=== PATIENT | female | born 1960 | race Caucasian/White ===

== ENCOUNTER → 2017-01-05 | Outpatient (CLI) | payer OTHER | LOC: FIMAGING 17:04 | PROVIDERS: ATTEND Family Medicine | DX: Z01.811 Encounter for preprocedural respiratory examination (principal); R94.31 Abnormal electrocardiogram [ECG] [EKG] ==

== ENCOUNTER 2017-02-05 12:49 | Inpatient (IN) | payer OTHER ==
--- NOTE | 2017-02-04 18:26 | GHP ---
[f rep st] PREOP HISTORY AND PHYSICAL DATE OF ADMISSION: 02/05/2017 DATE OF SURGERY: 02/05/2017. HISTORY: The patient is a 57-year-old female, who presents with severe left knee osteoarthritis and significant valgus malalignment. She has pain, swelling, limitation of motion, alteration of her gai t. She has a valgus thrust and this causes her to her limp. She has tried exercises and injections. This left knee has had previous ACL and an ACL revision. IMAGING: X-rays show tricompartment osteoarthritis of the left knee, severe narrowing, especially la terally, with degenerative lipping, joint-space narrowing, and subchondral sclerosis. A left total k nee arthroplasty is planned. ALLERGIES: No known drug allergies. PAST MEDICAL HISTORY: Anxiety, asthma. She has a history of skin cancer. PAST SURGICAL HISTORY: Skin cancer removal, placement of a left distal radial plate, subsequent onur sisi. She has had a left total shoulder arthroplasty. She has had a left ACL and revision. A right ankle procedure, bilateral hip replacements and she has had a successful right total knee arthroplast y. MEDICATIONS: Complex, pain service provides pain medications for chronic issues with pain largely mu sculoskeletal issues. She has had multiple severely arthritic joints. Her medications include diclo fenac topical gel, gabapentin 300 mg tablets, fentanyl 50 mcg/hour transdermal patch, carisoprodol 35 0 mg tablets, 1 tablet t.i.d. Trazodone 100 mg tablets, oxycodone 30 mg tablets, acyclovir 400 mg ta blets. Her pain service will manage her pain postoperatively. SOCIAL HISTORY: She is a nonsmoker. REVIEW OF SYSTEMS: Negative for cardiopulmonary disease. PHYSICAL EXAM: GENERAL: She is a well developed, well-nourished female in no apparent distress. HE AD AND NECK: Normocephalic, atraumatic. CHEST: Clear. CARDIOVASCULAR: Regular rate and rhythm. ABDOMEN: Soft. NEUROLOGIC: She is alert and oriented x3. EXTREMITIES: The left knee has signific ant valgus malalignment. She has a valgus thrust when she weight bears. She has a slight flexion co ntracture. She bends to about 120 degrees. SKIN: Intact. NEUROVASCULAR: Exam is intact. IMPRESSION: Left knee osteoarthritis. PLAN: Left total knee arthroplasty. Benefits and risks of surgery have been reviewed with the patie nt. She understands that the risks include infection, damage to blood vessels, nerves, failure or lo osening of components, and need for revision. There is the possibility of bleeding and need for rudolph sfusion, blood clot in the leg or lungs. She understands that, at her relatively young age, that she may need revision of her total knee. Her pain service will consult for managing her pain medication , she already has a prescription from them for postop pain management. This is oral medication. She has signed a consent form, wishes to proceed. /[id number]/MODL
[2017-02-05] MEDS ORDERED: TRANEXAMIC ACID IV ONE ×3 (13:32→14:00)
[2017-02-05] MEDS ORDERED: ACETAMINOPHEN 325 MG TAB PO ONE (13:32)
[2017-02-05] MEDS ORDERED: POVIDONE-IODINE 20 ML in SODIUM CL IRRIG SOLUTION 500 ML IRR ONE (13:32)
[2017-02-05] MEDS ORDERED: NS IV ONE ×3 (13:32→14:00)
[2017-02-05] MEDS ORDERED: DEXAMETHASONE 4 MG/ML VIAL IVP ONE (13:32)
[2017-02-05] MEDS ORDERED: ROPIVACAINE 0.2% 80 MG, EPINEPHrine 0.2 MG, KETOROLAC TROMETHAMINE 30 MG in BAG 0 ML IU ONE (13:32)
[2017-02-05] MEDS ORDERED: ceFAZolin 2 GM/DEXTROSE 100 ML IV ONE (13:32)
[2017-02-05] MEDS ORDERED: FAMOTIDINE 20 MG TAB PO ONE (13:32)
[2017-02-05] MEDS ORDERED: ceFAZolin 1 GM/5 ML SYR ONE ×2 (13:48→15:54)
[2017-02-05] MEDS ORDERED: LIDOCAINE 1% 2 ML INJ ID PRN (13:54)
[2017-02-05] MEDS ORDERED: LR 1,000 ML IV ONE (13:54)
[2017-02-05] MEDS ORDERED: PROPOFOL/EMULSION 500 MG/50 ML BOTTLE IV ONE (14:05)
[2017-02-05] MEDS ORDERED: MIDAZOLAM 2 MG/2 ML VIAL ONE ×2 (14:05→14:23)
--- NOTE | 2017-02-05 14:18 | PDANEPAE ---
ANE Past Medical History - Cardiovascular History Hx Hypertension: No Hx Arrhythmias: No Hx Chest Pain: No Hx Coronary Artery / Peripheral Vascular Disease: No Hx CHF / Valvular Disease: No Hx Palpitations: No - Pulmonary History Hx COPD: No Hx Asthma/Reactive Airway Disease: No Hx Recent Upper Respiratory Infection: No Hx Oxygen in Use at Home: No Hx Sleep Apnea: No Sleep Apnea Screening Result - Last Documented: Negative Pulmonary History Comment: HX ASTHMA - Neurologic History Hx Cerebrovascular Accident: No Hx Seizures: No Hx Dementia: No - Endocrine History Hx Diabetes: No - Renal History Hx Renal Disorders: No - Liver History Hx Hepatic Disorders: No - Neurological & Psychiatric Hx Hx Neurological and Psychiatric Disorders: Yes Neurological / Psychiatric History Comment: anxiety- on buproprion - Cancer History Hx Cancer: Yes Cancer History Comment: [id number] SKIN CA REMOVED - Congenital Disorder History Hx Congenital Disorders: No - GI History Hx Gastrointestinal Disorders: No - Other Health History Other Health History: BRUISES EASILY - Chronic Pain History Chronic Pain: Yes (bilateral shoulders, neck, lower back and bilateral knees) - Surgical History Prior Surgeries: 02/19/12 left shoulder arthroplasty with Balbir. 02/24/09 right BHR with Earl. 2006 frederic left filemon. 2007 earl left filemon. left acl surgery. left wrist surgery ANE Review of Systems Review of Systems: - Exercise capacity METS (RN): 4 METS ANE Patient History - Allergies Allergies/Adverse Reactions: DAIRY Allergy (Intermediate, Uncoded 07/23/13 15:15) CONGESTION/ MOTA OVER RIGHT EYE - Home Medications Home Medications: Gabapentin [Neurontin 300 MG (*)] 600 mg PO HS 04/25/16 [Last Taken 02/04/17] buPROPion [Wellbutrin 75mg (*)] 75 mg PO BID 04/25/16 [Last Taken 02/02/17] celeCOXIB [Celecoxib] 100 mg PO BID 04/25/16 [Last Taken 01/08/17] fentaNYL [Duragesic 75 MCG Patch (*)] 75 mcg TD Q48H 04/25/16 [Last Taken ] oxyCODONE IR [Oxycodone Ir (*)] 30 mg PO Q4 PRN 04/25/16 [Last Taken 02/05/17 11 :00] traZODone [traZODONE 100MG (*)] 100 mg PO HS PRN 04/25/16 [Last Taken 02/04/17 22:00] Baclofen [Baclofen 10 mg (*)] 5 - 10 mg PO HS 01/19/17 [Last Taken 02/05/17 09: 00] Bi-Est 2.5/P4 50mg 1 - 2 ml TP .1-2 TIMES/WEEK 01/19/17 [Last Taken 02/04/17] Calcium Carbonate [Oyster Shell Calcium 500 mg (*)] 500 mg PO DAILY 01/19/17 [ Last Taken 01/29/17] DULoxetine [Cymbalta 60 MG (*)] 60 mg PO DAILY 01/19/17 [Last Taken 01/29/17] E2 2mg/Gram 1 royal VG AD 01/19/17 [Last Taken 02/04/17] Herbals/Supplements -Info Only 1 ea PO DAILY 01/19/17 [Last Taken 01/22/17] Ibuprofen [Motrin (*)] 200 mg PO DAILY PRN 01/19/17 [Last Taken 01/29/17] Melatonin [Melatonin 3 MG (*)] 3 mg PO HS 01/19/17 [Last Taken 02/04/17] Methocarbamol [Robaxin 500 mg (*)] 500 mg PO TID 01/19/17 [Last Taken 02/05/17 09:00] Multivitamins [Multivitamin (*)] 1 each PO DAILY 01/19/17 [Last Taken 01/27/17] [place]-3 Fatty Acids [Fish Oil 1000 mg (*)] 2,000 mg PO DAILY 01/19/17 [Last Taken 01/22/17] Polyethylene Glycol 3350 [Miralax 17 gm (*)] 17 gm PO DAILY PRN 01/19/17 [Last Taken 02/04/17] hydrOXYzine HCL [hydrOXYzine HCL (RX)] 50 mg PO TID PRN 01/19/17 [Last Taken ] - NPO status NPO Since - Liquids (Date): 02/05/17 NPO Since - Liquids (Time): 11:00 NPO Since - Solids (Date): 02/04/17 NPO Since - Solids (Time): 22:00 - Smoking Hx Smoking Status: Never smoked - Family Anes Hx Family Hx Anesthesia Complications: None ANE Labs/Vital Signs - Vital Signs Blood Pressure: 137/93 Heart Rate: 76 Respiratory Rate: 16 O2 Sat (%): 96 Height: 170.18 cm Weight: 52.163 kg ANE Physical Exam - Airway Mallampati Score: Class 1 Mouth exam: normal dental/mouth exam - Pulmonary Pulmonary: no respiratory distress, no rales or rhonchi, clear to auscultation - Cardiovascular Cardiovascular: regular rate and rhythym, no murmur, rub, or gallop - ASA Status ASA Status: III ANE Anesthesia Plan Anesthesia Plan: spinal Regional Anesthesia: continuous NB, adductor canal FNB, POPC/PSR
[2017-02-05] MEDS ORDERED: ROPIVACAINE HCL 150 MG/30 ML INJ ONE (14:36)
[2017-02-05] MEDS ORDERED: LIDOCAINE 2% 5 ML SDV ONE (14:36)
[2017-02-05] MEDS ORDERED: PROMETHAZINE HCL 25 MG/ML INJ IVP PRN ×2 (15:03→16:25)
[2017-02-05] MEDS ORDERED: ALBUTEROL 3 ML DEYVIAL IH PRN (15:03)
[2017-02-05] MEDS ORDERED: fentaNYL 100 MCG/2 ML INJ IVP PRN (15:03)
[2017-02-05] MEDS ORDERED: DEXAMETHASONE 4 MG/ML VIAL IVP PRN (15:03)
[2017-02-05] MEDS ORDERED: LR 500 ML IV PRN (15:03)
[2017-02-05] MEDS ORDERED: NALOXONE HCL 0.4 MG/ML INJ IVP PRN ×2 (15:03→22:00)
[2017-02-05] MEDS ORDERED: ONDANSETRON 4 MG/2 ML VIAL IVP PRN ×2 (15:03→16:25)
[2017-02-05] MEDS ORDERED: BACITRACIN 50,000 UNITS/10 ML SYR IRR ONE (15:45)
[2017-02-05] MEDS ORDERED: DEXAMETHASONE 10 MG/ML VIAL ONE (15:59)
[2017-02-05] MEDS ORDERED: BUPIVACAINE 0.5% 30 ML SDV ONE (16:13)
[2017-02-05] MEDS ORDERED: DIPHENOXYLATE/ATROPINE LOMOTIL 1 TAB PO PRN (16:25)
[2017-02-05] MEDS ORDERED: LACTULOSE 20 GM/30 ML UDCUP PO PRN (16:25)
[2017-02-05] MEDS ORDERED: TEMAZEPAM 15 MG CAP PO PRN (16:25)
[2017-02-05] MEDS ORDERED: PHARMACY PAIN CONSULT 1 EA MISC PRN (16:25)
[2017-02-05] MEDS ORDERED: METOCLOPRAMIDE 10 MG/2 ML VIAL IVP PRN (16:25)
[2017-02-05] MEDS ORDERED: oxyCODONE IR 5 MG TAB PO PRN (16:25)
[2017-02-05] MEDS ORDERED: KETOROLAC 30 MG/1 ML SDV IVP PRN (16:25)
[2017-02-05] MEDS ORDERED: PROMETHAZINE HCL 25 MG SUPPR PR PRN (16:25)
[2017-02-05] MEDS ORDERED: POLYETHYLENE GLYCOL 3350 17 GM PKT PO PRN ×2 (16:25→16:29)
[2017-02-05] MEDS ORDERED: ONDANSETRON DISINTEGRATING 4 MG TAB PO PRN (16:25)
[2017-02-05] MEDS ORDERED: MAGNESIUM HYDROXIDE 30 ML UDCUP PO PRN (16:25)
[2017-02-05] MEDS ORDERED: diphenhydrAMINE 25 MG CAP PO PRN (16:25)
[2017-02-05] MEDS ORDERED: HYDROmorphONE/DILAUDID 1 MG/ML INJ ONE ×2 (16:25→17:24)
[2017-02-05] MEDS ORDERED: BISACODYL 10 MG SUPP PR PRN (16:25)
[2017-02-05] MEDS: HYDROmorphONE/DILAUDID 1 MG/ML INJ IVP PRN ×2 (16:28→17:26)
[2017-02-05] MEDS ORDERED: hydrOXYzine HCL 25 MG TAB PO PRN (16:29)
[2017-02-05] MEDS ORDERED: fentaNYL 75 MCG PATCH TD SCH (16:30)
[2017-02-05] MEDS ORDERED: LR 1,000 ML IV SCH (16:30)
[2017-02-05] MEDS ORDERED: [UNRECOGNIZED DRUG - OTHER] VG SCH (16:30)
[2017-02-05] MEDS ORDERED: DIAZEPAM 10 MG/2 ML SYR ONE (16:40)
[2017-02-05] MEDS ORDERED: ROPIVACAINE 0.2% 1,100 MG in PUMP SET 1 EA NB SCH (17:00)
[2017-02-05] MEDS ORDERED: fentaNYL 100 MCG/2 ML INJ ONE (17:24)
[2017-02-05] MEDS ORDERED: HYDROmorphONE/DILAUDID 1 MG/ML INJ IVP ONE (18:00)
[2017-02-05] MEDS: ACETAMINOPHEN 325 MG TAB PO SCH ×2 (18:20→22:56)
--- NOTE | 2017-02-05 19:29 | GOP ---
[f rep st] OPERATIVE REPORT DATE OF OPERATION: 02/05/2017 SURGEON: Gus Tavarez MD MEDICAL SALES SPECIALIST: Paolo Singh, [facility], A ANESTHESIOLOGIST: Leah Durant MD PREOPERATIVE DIAGNOSIS: 1. Left knee osteoarthritis. 2. Retained hardware. POSTOPERATIVE DIAGNOSIS: 1. Left knee osteoarthritis. 2. Retained hardware. PROCEDURE PERFORMED: 1. Left total knee arthroplasty. 2. Hardware removal, distal femur, proximal tibia. FINDINGS: INDICATIONS: The patient is a 57-year-old female, who presents with severe tricompartmental osteoart hritis, in valgus malalignment, that has been chronic and no longer responsive to more conservative m easures. She has severe osteoarthritis and degenerative lipping, subchondral sclerosis, decreased everette int space, and valgus malalignment, especially degenerative on the lateral side. A left total knee a rthroplasty is planned. DESCRIPTION OF PROCEDURE: The patient was taken to the operating room, and while seated on the opera ting table, a spinal block was provided by Dr. Durant. She received IV sedation, 2 g of IV Ancef, and tranexamic acid. A tourniquet was fit high on the left thigh and the left leg was prepped and drape d in the usual fashion with chlorhexidine. The limb was elevated, exsanguinated, the tourniquet infl ated to 250 mmHg. I made a longitudinal incision in the anterior midline, used a medial parapatellar arthrotomy. I inverted the patella, measured its thickness, removed 9 mm of cartilage and bone, inc ised the patellar component was 32. I drilled peg holes and I found that the combination of the brodie ve patella and the trial reconstituted the thickness of the patella very nicely. I removed rimming o steophytes. The knee was then flexed and I used an intramedullary kelsea in the femur. This required m e to remove a screw and washer that were previously placed for revision ACL reconstruction in the sup racondylar area. I then placed the femoral kelsea for a 5 degree valgus cut +2 extra bone for her sligh t flexion contracture, and I made a distal cut. I sized this to a size 4. Anterior, posterior, marvin pavel cuts were used, as well as the box cut for the notch for this bi-cruciate stabilized knee, and th e femoral component was a good fit. I used a posterior and lateral retractor. I used an extramedull buster device on the tibia. I adjusted for slope, rotation, and appropriate depth cut, and made a cut o f the proximal tibia perpendicular to the shaft of the tibia. I sized this to a 3. I dialed in its rotation, pinned it, and completed the tibial prep. All the bone surfaces were irrigated with antibi otic solution. All were coated with cement and the components were applied. After the cement had humprhey rdened, I did trial reductions, and found that the 10 mm insert allowed full extension, excellent rol lback in flexion, and appropriate ligamentous stability. Rotation was fine. Patellar tracking looke d good. I did also remove the tibial screw which was size 4.5 cortical Synthes screw in the tibia, a nd a washer, again from the previous ACL reconstruction. It was prominent on her ugalde. Copious anti biotic irrigation was used. I used an iodine wash as well. The tourniquet was let down after about 70 minutes. I did trial reductions, as noted, and the 10 mm tray was the best. I closed the arthrot masha using interrupted [id number] sutures of 0 M[place]il[place], subcutaneous tissue was closed with 2-0 Monocryl, and the skin was closed with eric. The wounds were all dressed with Betadine-soaked Ad aptic, 4 x 4, sterile Webril, and a long-leg DORITA stocking. There were no complications. Estimated b lood loss was minimal. There were no drains. Specimens included excised bone. All counts were geovany ect. The patient was taken in stable condition to recovery. My surgical endoscopist was a [facility] to accomplish this total knee. SUMMARY OF COMPONENTS: A [employer] knee, bi-cruciate stabilized, Oxinium femur, all c omponents cemented. The femur is size 4, tibia size 3, the articular tray 10 mm, and the patella is 32 mm. /[id number]/MODL
--- NOTE | 2017-02-05 19:53 | POSTANESTH ---
Post Anesthetic Evaluation Cardiovascular Status: Normal, Stable Respiratory Status: Normal, Stable Level of Consciousness/Mental Status: Can Participate in Eval Pain Control: Adequate, Prn Tx Ordered Nausea/Vomiting Control: Adequate, Prn Tx Ordered Complications Possibly Related to Anesthesia: None Noted Notes: Continous Adductor canal nerve block performed in Pacu
[2017-02-05] MEDS: SENNOSIDES/DOCUSATE SODIUM TAB PO SCH (19:57)
[2017-02-05] MEDS: GABAPENTIN 300 MG CAP PO SCH (19:57)
[2017-02-05] MEDS: buPROPion 75 MG TAB PO SCH (19:58)
[2017-02-05] MEDS: MELATONIN 3 MG TAB PO SCH (19:58)
[2017-02-05] MEDS: FAMOTIDINE 20 MG TAB PO SCH (19:58)
[2017-02-05] MEDS: ASPIRIN 325 MG TAB PO SCH (20:10)
[2017-02-05] MEDS: METHOCARBAMOL 500 MG TAB PO SCH (20:11)
[2017-02-05] MEDS: ceFAZolin 2 GM/DEXTROSE 100 ML IV SCH (20:15)
[2017-02-05] MEDS: HYDROmorphONE/DILAUDID 6 MG/30 ML PCA IV PRN (23:00)
[2017-02-06 05:21] LABS: HEMATOCRIT 30.7 % (38.0-47.0); HEMOGLOBIN 10.4 g/dL (12.6-16.3)
[2017-02-06] MEDS: HYDROmorphONE/DILAUDID 6 MG/30 ML PCA IV PRN ×2 (05:56→15:41)
[2017-02-06] MEDS: ACETAMINOPHEN 325 MG TAB PO SCH ×4 (05:59→23:46)
[2017-02-06] MEDS: ceFAZolin 2 GM/DEXTROSE 100 ML IV SCH (06:00)
--- NOTE | 2017-02-06 08:21 | SOAPPROG ---
SOAP Progress Note Assessment/Plan: Assessment: 02/06/17 POD#1 L TKA, pain controll a challenge, Hct 30, xray fine Plan: 02/06/17 08:19 PT/OT, manage pain meds and pump Objective: Vital Signs Temp Pulse Resp BP Pulse Ox 36.8 C 83 16 97/51 L 94 02/06/17 07:50 02/06/17 07:50 02/06/17 07:50 02/06/17 07:50 02/06/17 07:50 Laboratory Results 02/06/17 04:56 02/05/17 02/06/17 02/07/17 05:59 05:59 05:59 Intake Total 1000 Output Total 930 Balance 70 ICD10 Worksheet Patient Problems: Problems Problem Status Onset Osteoarthritis of multiple joints Active Methicillin resistant Staphylococcus aureus infection Acute ~01/05/17
[2017-02-06] MEDS: ASPIRIN 325 MG TAB PO SCH (09:42)
[2017-02-06] MEDS: buPROPion 75 MG TAB PO SCH ×2 (09:43→21:51)
[2017-02-06] MEDS: DULoxetine 60 MG CAP PO SCH (09:43)
[2017-02-06] MEDS: METHOCARBAMOL 500 MG TAB PO SCH ×3 (09:43→21:50)
[2017-02-06] MEDS: FAMOTIDINE 20 MG TAB PO SCH ×2 (09:43→21:51)
[2017-02-06] MEDS: SENNOSIDES/DOCUSATE SODIUM TAB PO SCH ×2 (09:43→21:50)
[2017-02-06] MEDS: CALCIUM CARBONATE 500 MG TAB PO SCH (09:43)
[2017-02-06] MEDS: CYCLOBENZAPRINE 10 MG TAB PO PRN (12:31)
--- NOTE | 2017-02-06 15:06 | ASMTCMCOM ---
CM Note CM Note Notes: Pt agreeable to [facility] per PT rec. Pt has [employer] ins; referral sent to [facility] who will confirm they can take ins. CM to follow. Date Signed: 02/06/2017 03:06 PM Electronically Signed By:DINAH Stevens
--- NOTE | 2017-02-06 16:23 | ASMTCMCOM ---
CM Note CM Note Notes: [facility] cannot accept due to staffing, referral sent to [facility]. Date Signed: 02/06/2017 04:23 PM Electronically Signed By:DINAH Stevens
[2017-02-06] MEDS: GABAPENTIN 300 MG CAP PO SCH (21:50)
[2017-02-06] MEDS: MELATONIN 3 MG TAB PO SCH (21:51)
[2017-02-07 02:12] VITALS: RESP 16
[2017-02-07 06:07] LABS: HEMATOCRIT 26.4 % (38.0-47.0); HEMOGLOBIN 8.7 g/dL (12.6-16.3)
[2017-02-07] MEDS: ACETAMINOPHEN 325 MG TAB PO SCH ×2 (06:14→10:49)
[2017-02-07] MEDS: CYCLOBENZAPRINE 10 MG TAB PO PRN (06:20)
[2017-02-07] MEDS: METHOCARBAMOL 500 MG TAB PO SCH (09:14)
[2017-02-07] MEDS: CALCIUM CARBONATE 500 MG TAB PO SCH (09:14)
[2017-02-07] MEDS: ASPIRIN 325 MG TAB PO SCH (09:14)
[2017-02-07] MEDS: SENNOSIDES/DOCUSATE SODIUM TAB PO SCH (09:14)
[2017-02-07] MEDS: FAMOTIDINE 20 MG TAB PO SCH (09:15)
[2017-02-07] MEDS: DULoxetine 60 MG CAP PO SCH (09:15)
[2017-02-07] MEDS: buPROPion 75 MG TAB PO SCH (09:15)
--- NOTE | 2017-02-07 11:32 | SOAPPROG ---
SOAP Progress Note Assessment/Plan: Assessment: 02/06/17 POD#1 L TKA, pain controll a challenge, Hct 30, xray fine 02/07/17 POD#2, off iv pain pump, changed dressing Plan: 02/06/17 08:19 PT/OT, manage pain meds and pump 02/07/17 11:30 ok for d/c home, has meds, asa 325 Objective: Vital Signs Temp Pulse Resp BP Pulse Ox 36.8 C 83 16 106/64 90 L 02/07/17 10:00 02/07/17 10:00 02/07/17 10:00 02/07/17 10:00 02/07/17 10:00 Laboratory Results 02/07/17 04:55 02/06/17 02/07/17 02/08/17 05:59 05:59 05:59 Intake Total 1000 400 Output Total 930 350 Balance 70 50 ICD10 Worksheet Patient Problems: Problems Problem Status Onset Osteoarthritis of multiple joints Active Methicillin resistant Staphylococcus aureus infection Acute ~01/05/17
--- NOTE | 2017-02-07 11:38 | PDIAF ---
- Diagnosis Code Status: Full Code - Medication Management Discharge Medications: Medications to Continue on Transfer Gabapentin [Neurontin 300 MG (*)] 600 mg PO HS 04/25/16 [Last Taken 02/04/17] buPROPion [Wellbutrin 75mg (*)] 75 mg PO BID 04/25/16 [Last Taken 02/02/17] celeCOXIB [Celecoxib] 100 mg PO BID 04/25/16 [Last Taken 01/08/17] oxyCODONE IR [Oxycodone Ir (*)] 30 mg PO Q4 PRN 04/25/16 [Last Taken 02/05/17 11 :00] traZODone [traZODONE 100MG (*)] 100 mg PO HS PRN 04/25/16 [Last Taken 02/04/17 22:00] Baclofen [Baclofen 10 mg (*)] 5 - 10 mg PO HS 01/19/17 [Last Taken 02/05/17 09: 00] Bi-Est 2.5/P4 50mg 1 - 2 ml TP .1-2 TIMES/WEEK 01/19/17 [Last Taken 02/04/17] Calcium Carbonate [Oyster Shell Calcium 500 mg (*)] 500 mg PO DAILY 01/19/17 [ Last Taken 01/29/17] DULoxetine [Cymbalta 60 MG (*)] 60 mg PO DAILY 01/19/17 [Last Taken 01/29/17] E2 2mg/Gram 1 royal VG AD 01/19/17 [Last Taken 02/04/17] Herbals/Supplements -Info Only 1 ea PO DAILY 01/19/17 [Last Taken 01/22/17] Ibuprofen [Motrin (*)] 200 mg PO DAILY PRN 01/19/17 [Last Taken 01/29/17] Melatonin [Melatonin 3 MG (*)] 3 mg PO HS 01/19/17 [Last Taken 02/04/17] Methocarbamol [Robaxin 500 mg (*)] 500 mg PO TID 01/19/17 [Last Taken 02/05/17 09:00] Multivitamins [Multivitamin (*)] 1 each PO DAILY 01/19/17 [Last Taken 01/27/17] [place]-3 Fatty Acids [Fish Oil 1000 mg (*)] 2,000 mg PO DAILY 01/19/17 [Last Taken 01/22/17] Polyethylene Glycol 3350 [Miralax 17 gm (*)] 17 gm PO DAILY PRN 01/19/17 [Last Taken 02/04/17] hydrOXYzine HCL [hydrOXYzine HCL (RX)] 50 mg PO TID PRN 01/19/17 [Last Taken ] Aspirin [Aspirin 325 mg (*)] 325 mg PO DAILY tab 02/07/17 [Last Taken Unknown] Discharge Medications: Refer to the Discharge Home Medication list for PRN reason. - Orders Services needed: Physical Therapy Diet Recommendation: no restrictions on diet Diet Texture: Regular Texture Diet Ruperto Stockings Discontinue Date: 2 wls post op Wound Care Instructions: dressing change daily Sutures/Maribell Site: maribell: knee, I will remove at 2 weeks Activity/Weight Bearing Restrictions: WBAT, FROM - Follow Up Care Current Providers and Referrals: Ana Sun MD [Primary Care Provider] -
[2017-02-07 11:57] VITALS: BP 108/71; PULSE 81; TEMP 98.4; O2SAT 91
--- NOTE | 2017-02-07 14:15 | ASMTCMCOM ---
CM Note CM Note Notes: Pt medically stable for d/c w [facility]. Date Signed: 02/07/2017 02:14 PM Electronically Signed By:DINAH Stevens
--- NOTE | 2017-02-07 16:03 | ASDISCHSUM ---
Discharge Information Plan Status:Home with Home Health Medically Cleared to Leave: Discharge Date:02/07/2017 03:56 PM CM D/C Disposition:Home Health Service ADT D/C Disposition:Home Health Service Projected Discharge Date:02/07/2017 11:00 AM Transportation at D/C: Discharge Delay Reason: Follow-Up Date:02/07/2017 11:00 AM Discharge Slot: Final Diagnosis: Placement Information Referral Type:*Home Health Care Services Referral ID:[id number] Provider Name:[facility] [place] Address 1:[address] [place] [address] Phone Number: Address 2: Fax Number: City:[place] Selection Factors: State:[place] Patient Contact Information Contact Name:ALEJANDRA Relationship: Address:[address] [place] [address] City:[facility] Phone: State/Zip Code:[place] [address] Email: Financial Information Financial Class:HMO and PPO Plans Primary Plan Desc:[employer] PPO POS HMO Primary Plan Number:[id number] Secondary Plan Desc: Secondary Plan Number: Assessment Information [facility] CM Progress Note CM Note CM Note Notes: Pt agreeable to [facility] per PT rec. Pt has [employer] ins; referral sent to [facility] who will confirm they can take ins. CM to follow. Date Signed: 02/06/2017 03:06 PM Electronically Signed By:DINAH Stevens [facility] CM Progress Note CM Note CM Note Notes: [facility], referral sent to [facility]. Date Signed: 02/06/2017 04:23 PM Electronically Signed By:DINAH Stevens [facility] CM Progress Note CM Note CM Note Notes: Pt medically stable for d/c w [facility]. Date Signed: 02/07/2017 02:14 PM Electronically Signed By:DINAH Stevens Intervention Information
== END 2017-02-07 15:56 | disposition home health service (06) | DRG 470 ==
LOC: F3N 12:49
PROVIDERS: ADMIT Orthopaedic Surgery; ATTEND Orthopaedic Surgery
PROC: 0SRD0J9 Replacement of Left Knee Joint with Synthetic Substitute, Cemented, Open Approach (ICD-10-PCS; principal; 2017-02-05 14:15)
DX: M17.12 Unilateral primary osteoarthritis, left knee (principal); J45.909 Unspecified asthma, uncomplicated; Z96.612 Presence of left artificial shoulder joint; Z96.643 Presence of artificial hip joint, bilateral; Z96.651 Presence of right artificial knee joint; Z85.820 Personal history of malignant melanoma of skin
CPT/HCPCS: 97116-GP; 97161-GP; 97165-GO; 97530-GP; 97535-GO; C1713; J0171; J0690; J1100; J1170; J1885; J2250; J2704; J2795; J3010

== ENCOUNTER 2017-07-26 08:31 | Emergency (ER) | payer OTHER ==
[2017-07-26 08:44] VITALS: BP 130/90; PULSE 91; RESP 16; TEMP 99.7; O2SAT 92
[2017-07-26] MEDS ORDERED: ACETAMINOPHEN 500 MG TAB PO ONE (09:07)
--- NOTE | 2017-07-26 09:11 | EDPHY ---
H & P Time Seen by Provider: 07/26/17 08:36 HPI/ROS: CHIEF COMPLAINT: Fever, body aches HISTORY OF PRESENT ILLNESS: Patient states last night she started feeling ill, more tired than normal, went to bed early. At 6 o'clock this morning she woke up with fever"burning up"measured at 104 degrees. She took 400 mg of Advil with some relief. She is complaining of overall body aches but more so in her low back where she has chronic pain. Also generally weak and states that her head feels like it is"on fire". She did have 1 episode of vomiting and some nausea around 615 this morning but after that was able to keep fluids down. She denies dysuria, diarrhea. No cough. She denies sore throat or earache. She has a little bit of rhinorrhea that is chronic in nature. No other recent illnesses. Did get a flu shot. Called her primary care physician and was recommended to go into the emergency department. Contents of 10 point review of systems otherwise negative except for what is mentioned in HPI. General Appearance: Alert, no distress. Eyes: Pupils equal and round no pallor or injection. ENT, Mouth: Mucous membranes moist. Normal posterior oropharynx. Respiratory: There are no retractions, lungs are clear to auscultation. Cardiovascular: Regular rate and rhythm. Gastrointestinal: Abdomen is soft and nontender, no masses, bowel sounds normal. Neurological: Cranial nerves intact, alert, movement extremities x4 is normal. Normal tone. Skin: Warm and dry, no rashes. Musculoskeletal: Neck is supple nontender. Extremities are symmetrical, full range of motion, no edema. Psychiatric: Patient is oriented X 3, there is no agitation. Medical/surgical history: Chronic pain. ACL surgery, hip replacement, shoulder replacement. Psoriasis. Social history: Nonsmoker, lives with . Smoking Status: Never smoked Constitutional: Initial Vital Signs Temperature (C) 37.6 C 07/26/17 08:39 Heart Rate 91 07/26/17 08:39 Respiratory Rate 16 07/26/17 08:39 Blood Pressure 130/90 H 07/26/17 08:39 O2 Sat (%) 92 07/26/17 08:39 O2 Delivery Mode Room Air Allergies/Adverse Reactions: No Known Allergies Allergy (Verified 07/26/17 08:38) Home Medications: Medication Instructions Recorded Gabapentin [Neurontin 300 MG (*)] 600 mg PO HS 04/25/16 buPROPion [Wellbutrin 75mg (*)] 75 mg PO BID 04/25/16 celeCOXIB [Celecoxib] 100 mg PO BID 04/25/16 oxyCODONE IR [Oxycodone Ir (*)] 30 mg PO Q4 PRN 04/25/16 traZODone [traZODONE 100MG (*)] 100 mg PO HS PRN 04/25/16 Baclofen [Baclofen 10 mg (*)] 5 - 10 mg PO HS 01/19/17 Bi-Est 2.5/P4 50mg 1 - 2 ml TP .1-2 TIMES/WEEK 01/19/17 Calcium Carbonate [Oyster Shell 500 mg PO DAILY 01/19/17 Calcium 500 mg (*)] DULoxetine [Cymbalta 60 MG (*)] 60 mg PO DAILY 01/19/17 E2 2mg/Gram 1 royal VG AD 01/19/17 Herbals/Supplements -Info Only 1 ea PO DAILY 01/19/17 Ibuprofen [Motrin (*)] 200 mg PO DAILY PRN 01/19/17 Melatonin [Melatonin 3 MG (*)] 3 mg PO HS 01/19/17 Methocarbamol [Robaxin 500 mg (*)] 500 mg PO TID 01/19/17 Multivitamins [Multivitamin (*)] 1 each PO DAILY 01/19/17 [place]-3 Fatty Acids [Fish Oil 1000 2,000 mg PO DAILY 01/19/17 mg (*)] Polyethylene Glycol 3350 [Miralax 17 gm PO DAILY PRN 01/19/17 17 gm (*)] hydrOXYzine HCL [hydrOXYzine HCL 50 mg PO TID PRN 01/19/17 (RX)] Aspirin [Aspirin 325 mg (*)] 325 mg PO DAILY tab 02/07/17 Oseltamivir Phosphate [Tamiflu 75 75 mg PO BID #10 cap 07/26/17 mg (*)] Medical Decision Making Differential Diagnosis: Differential diagnosis includes but is not limited to influenza, urinary tract infection, pneumonia, other bacterial infection. After evaluation patient well appearing with signs and symptoms of influenza. Deferred influenza testing and offered prescription for Tamiflu. No signs of strep pharyngitis, pneumonia, dysuria, sepsis. Discussed home care, follow-up and reviewed return precautions in detail. Stable for discharge. - Data Points Medications Given: Discontinued Medications Acetaminophen (Tylenol) 1,000 mg PO EDNOW ONE Stop: 07/26/17 09:08 Last Admin: 07/26/17 09:13 Dose: 1,000 mg Departure - Departure Disposition: Home, Routine, Self-Care Clinical Impression: Viral syndrome Condition: Good Instructions: Influenza (ED) Additional Instructions: Use ibuprofen alternating with Tylenol for fever control and to help with body aches. Stay well hydrated. Rest. Expect to be ill for a week or so. Return to the emergency department if you have trouble breathing, chest pain, are dehydrated or for other concerning symptoms. Otherwise follow up with the primary care physician. Referrals: Ana Sun MD [Primary Care Provider] - As per Instructions Prescriptions: Oseltamivir Phosphate [Tamiflu 75 mg (*)] 75 mg PO BID #10 cap
== END 2017-07-26 09:25 | disposition home or self-care (01) ==
LOC: CED 08:31
DX: B34.9 Viral infection, unspecified (principal); Z79.82 Long term (current) use of aspirin

== ENCOUNTER → 2017-08-24 | Outpatient (CLI) | payer OTHER, MEDICAID | LOC: FIMAGING 08:33 | PROVIDERS: ATTEND Orthopaedic Surgery | DX: M75.32 Calcific tendinitis of left shoulder (principal) ==

== ENCOUNTER → 2017-09-03 | Outpatient (CLI) | payer OTHER | LOC: FIMAGING 14:47 | PROVIDERS: ATTEND Family Medicine | DX: Z12.31 Encounter for screening mammogram for malignant neoplasm of breast (principal) ==

== ENCOUNTER 2017-10-03 08:16 | Day surgery (SDC) | payer MEDICAID ==
[2017-10-03] MEDS ORDERED: LR 1,000 ML IV ONE (08:30)
[2017-10-03] MEDS ORDERED: LIDOCAINE 1% 2 ML INJ ID PRN (08:52)
[2017-10-03] MEDS ORDERED: LIDOCAINE 1% 2 ML INJ ONE (08:53)
--- NOTE | 2017-10-03 09:32 | PDANEPAE ---
ANE History of Present Illness here for colonoscopy ANE Past Medical History - Cardiovascular History Hx Hypertension: No Hx Arrhythmias: No Hx Chest Pain: No Hx Coronary Artery / Peripheral Vascular Disease: No Hx CHF / Valvular Disease: No Hx Palpitations: No - Pulmonary History Hx COPD: No Hx Asthma/Reactive Airway Disease: No Hx Recent Upper Respiratory Infection: No Hx Oxygen in Use at Home: No Hx Sleep Apnea: No Sleep Apnea Screening Result - Last Documented: Negative Pulmonary History Comment: asthma-uses inhaler- instructed pt to bring - Neurologic History Hx Cerebrovascular Accident: No Hx Seizures: No Hx Dementia: No Neurologic History Comment: DDD - Endocrine History Hx Diabetes: No - Renal History Hx Renal Disorders: Yes Renal History Comment: hx of uti's. MRSA in urine 01/05/17 - Liver History Hx Hepatic Disorders: No - Neurological & Psychiatric Hx Hx Neurological and Psychiatric Disorders: Yes Neurological / Psychiatric History Comment: anxiety. insomnia. fibromyalgia - Cancer History Hx Cancer: Yes Cancer History Comment: skin - Congenital Disorder History Hx Congenital Disorders: No - GI History Hx Gastrointestinal Disorders: Yes Gastrointestinal History Comment: constipation d/t medications uses miralax daily - Other Health History Other Health History: chronic pain pt. wears reading glasses. avascular necrosis. osteoarthritis - Chronic Pain History Chronic Pain: Yes (lower back, sacrum area, neck and shoulders) - Surgical History Prior Surgeries: 02/05/17 Left TKA with [facility]by. 05/08/16 Right TKA with [facility]by. 2012 bilateral wrists plates. 2012 left ACL. 2011 Left total shoulder replacement. 2008 Right RIVKA. 2005 Left RIVKA. 2000 Left ACL repair ANE Review of Systems Review of Systems: - Exercise capacity METS (RN): 4 METS ANE Patient History - Allergies Allergies/Adverse Reactions: No Known Allergies Allergy (Verified 10/02/17 11:03) - Home Medications Home Medications: Gabapentin [Neurontin 300 MG (*)] HS 04/25/16 [Last Taken 1 Day Ago ~10/02/17] buPROPion [Wellbutrin 75mg (*)] BID 04/25/16 [Last Taken 10/03/17 07:00] celeCOXIB [Celecoxib] BID 04/25/16 [Last Taken 01/08/17] oxyCODONE IR [Oxycodone Ir (*)] Q4 PRN 04/25/16 [Last Taken 10/03/17 07:00] traZODone [traZODONE 100MG (*)] HS PRN 04/25/16 [Last Taken 02/04/17 22:00] Baclofen [Baclofen 10 mg (*)] HS 01/19/17 [Last Taken 2 Days Ago ~10/01/17] Bi-Est 2.5/P4 50mg TP .1-2 TIMES/WEEK 01/19/17 [Last Taken 02/04/17] E2 2mg/Gram VG AD 01/19/17 [Last Taken 02/04/17] Herbals/Supplements -Info Only 01/19/17 [Last Taken 10/02/17] Methocarbamol [Robaxin 500 mg (*)] TID 01/19/17 [Last Taken 1 Day Ago ~10/02/17] Polyethylene Glycol 3350 [Miralax 17 gm (*)] PRN 01/19/17 [Last Taken 10/03/17 01:00] Acyclovir PRN 10/02/17 [Last Taken Unknown] Fentanyl Patch 75mcg/Hr 10/02/17 [Last Taken Unknown] Proair Inhaler 10/02/17 [Last Taken 10/03/17 08:00] Voltaren Gel (*) 10/02/17 [Last Taken 2 Days Ago ~10/01/17] - NPO status NPO Since - Liquids (Date): 10/03/17 NPO Since - Liquids (Time): 01:00 NPO Since - Solids (Date): 10/02/17 NPO Since - Solids (Time): 08:00 - Smoking Hx Smoking Status: Never smoked - Family Anes Hx Family Hx Anesthesia Complications: none ANE Labs/Vital Signs - Vital Signs Blood Pressure: 107/65 Heart Rate: 78 Respiratory Rate: 18 O2 Sat (%): 95 Height: 170.18 cm Weight: 54.1 kg ANE Physical Exam - Airway Neck exam: FROM Mallampati Score: Class 1 - Pulmonary Pulmonary: no respiratory distress - Cardiovascular Cardiovascular: regular rate and rhythym - ASA Status ASA Status: II ANE Anesthesia Plan Anesthesia Plan: GA with mask
[2017-10-03] MEDS ORDERED: LR 500 ML IV PRN (09:37)
[2017-10-03] MEDS ORDERED: fentaNYL 100 MCG/2 ML INJ IVP PRN (09:37)
[2017-10-03] MEDS ORDERED: HYDROmorphONE/DILAUDID 2 MG/ML INJ IVP PRN (09:37)
[2017-10-03] MEDS ORDERED: ALBUTEROL 3 ML DEYVIAL IH PRN (09:37)
[2017-10-03] MEDS ORDERED: ONDANSETRON 4 MG/2 ML VIAL IVP PRN (09:37)
[2017-10-03] MEDS ORDERED: DIAZEPAM 5 MG/ML 1 ML SYR IVP PRN (09:37)
[2017-10-03] MEDS ORDERED: NALOXONE HCL 0.4 MG/ML INJ IVP PRN (09:37)
--- NOTE | 2017-10-03 09:59 | PDGENHP ---
History & Physical Chief Complaint: cc screening History of Present Illness: cc screening Pertinent Past, Social, Family History: no fhx cc or polyps. no tobacco or alcohol. anxiety Relevant Physical Exam: A+Ox3. CTA. S1S2. +BS,soft nt Cardiorespiratory Assessment: class 2
[2017-10-03] MEDS ORDERED: PROPOFOL/EMULSION 500 MG/50 ML BOTTLE IV ONE (10:10)
--- NOTE | 2017-10-03 11:39 | GIREPORT ---
[facility] Surgical Services - Endoscopy Department Patient Name: Arleth Hurst Procedure Date: 10/03/2017 10:07 AM Patient Type: Outpatient Attending MD/ ER Physician: Patricia Barone Procedure: Colonoscopy Indications: Screening for colorectal malignant neoplasm Providers: Wilberto Juarez MD Referring MD: Ana Sun MD Medicines: Total IV Anesthesia (TIVA)= IV general w/o airway Complications: No immediate complications. Estimated blood loss: Minimal. Description of Procedure: After obtaining informed consent, the scope was passed under direct vis ion. Throughout the procedure, the patient's blood pressure, pulse, and oxyg en saturations were monitored continuously. The was introduced through the anus and advanced to the terminal ileum, with identification of the appendic eal orifice and IC valve. The colonoscopy was performed without difficulty. The patient tolerated the procedure well. The quality of the bowel preparat ion was good. Findings: The digital rectal exam was normal. The terminal ileum appeared normal. A 6 mm polyp was found in the proximal transverse colon. The polyp was sessile. The polyp was removed with a cold snare. Resection and retriev al were complete. Estimated blood loss was minimal. A 3 mm polyp was found in the mid transverse colon. The polyp was sessi le. The polyp was removed with a piecemeal technique using a cold biopsy forceps. Resection and retrieval were complete. Estimated blood loss wa s minimal. A 3 mm polyp was found in the sigmoid colon. The polyp was sessile. The polyp was removed with a piecemeal technique using a cold biopsy forcep s. Resection and retrieval were complete. Estimated blood loss was minimal . Many medium-mouthed diverticula were found in the sigmoid colon and descending colon. The exam was otherwise without abnormality. Estimated Blood Loss: Estimated blood loss was minimal. Post Op Diagnosis: - The examined portion of the ileum was normal. - One 6 mm polyp in the proximal transverse colon, removed with a cold snare. Resected and retrieved. - One 3 mm polyp in the mid transverse colon, removed piecemeal using a cold biopsy forceps. Resected and retrieved. - One 3 mm polyp in the sigmoid colon, removed piecemeal using a cold b iopsy forceps. Resected and retrieved. - Diverticulosis in the sigmoid colon and in the descending colon. - The examination was otherwise normal. Recommendation: - Await pathology results. - My office will call with the pathology result with 5-7 days. If you h ave not heard from my office by 12-14, do not assume the pathology is sylvester l, please call [phone] to get the pathology results. - Repeat colonoscopy in 5 years for surveillance based on pathology res ults. IF all three polyps have cancer potential, then the interval is 3 years . If none have cancer potential then the screening interval is 10 years. - High fiber diet indefinitely. - 30-35 grams of dietary fiber per day. Can use supplemental fiber. - A high fiber diet may decrease risk of complications from diverticulo sis. There is no need to avoid seeds or nuts. - Patient has a contact number available for emergencies. The signs and symptoms of potential delayed complications were discussed with the pat ient. Return to normal activities tomorrow. Written discharge instructions we re provided to the patient. - Continue present medications. - Discharge patient to home (ambulatory). - Return to primary care physician as previously scheduled. - Thank you for allowing me to help in your patient's care. Do not hesi root to call with any questions. Attending Participation: I personally performed the entire procedure. Larry Ladd M.D Wilberto Juarez MD 10/03/2017 11:38:49 AM This report has been signed electronicallyMathew MD Larry Number of Addenda: 0 Note Initiated On: 10/03/2017 10:07 AM Total Procedure Duration Time 0 hours 17 minutes 51 seconds [email or web address]
[2017-10-03 11:41] VITALS: BP 105/76
--- NOTE | 2017-10-03 12:49 | POSTANESTH ---
Post Anesthetic Evaluation Cardiovascular Status: Normal, Stable Respiratory Status: Normal, Stable Level of Consciousness/Mental Status: Can Participate in Eval Pain Control: Adequate, Prn Tx Ordered Nausea/Vomiting Control: Adequate, Prn Tx Ordered Complications Possibly Related to Anesthesia: None Noted
== END 2017-10-03 12:15 | disposition home or self-care (01) ==
LOC: FSGY 08:16
PROVIDERS: ATTEND Internal Medicine Gastroenterology
DX: Z12.11 Encounter for screening for malignant neoplasm of colon (principal); K63.5 Polyp of colon; K57.32 Diverticulitis of large intestine without perforation or abscess without bleeding; J45.909 Unspecified asthma, uncomplicated; G89.29 Other chronic pain; F41.9 Anxiety disorder, unspecified; M79.7 Fibromyalgia; M54.2 Cervicalgia; M54.5 Low back pain; Z96.643 Presence of artificial hip joint, bilateral; Z96.651 Presence of right artificial knee joint; Z96.612 Presence of left artificial shoulder joint; Z87.440 Personal history of urinary (tract) infections
CPT/HCPCS: J2704

== ENCOUNTER → 2017-12-17 | Outpatient (CLI) | payer MEDICAID | LOC: BMCIMAGING 15:12 | PROVIDERS: ATTEND Orthopaedic Surgery Hand Surgery | DX: M19.011 Primary osteoarthritis, right shoulder (principal) | CPT/HCPCS: 84481-90 ==

== ENCOUNTER → 2018-03-26 | Outpatient (CLI) | payer MEDICAID | LOC: FIMAGING 13:29 | PROVIDERS: ATTEND Family Medicine | DX: M54.5 Low back pain (principal); M79.604 Pain in right leg; M79.605 Pain in left leg; Z96.641 Presence of right artificial hip joint; Z96.642 Presence of left artificial hip joint ==

== ENCOUNTER → 2018-06-28 | Outpatient (CLI) | payer MEDICAID | LOC: FIMAGING 18:37 | PROVIDERS: ATTEND Orthopaedic Surgery Hand Surgery | DX: M75.91 Shoulder lesion, unspecified, right shoulder (principal); S43.431A Superior glenoid labrum lesion of right shoulder, initial encounter ==

== ENCOUNTER 2018-11-05 09:57 | Day surgery (SDC) | payer MEDICAID | END 2018-11-05 15:52 | disposition home or self-care (01) | LOC: FSGY 09:57 ==